=== PATIENT | female | born 1970 ===

== ENCOUNTER 2020-09-11 21:41 | Inpatient (IN) | payer MEDICAID, SELFPAY ==
[2020-09-11] VITALS (22 sets, daily range): BP systolic 162–229; BP diastolic 79–126; PULSE 67–132; RESP 15–33; TEMP 36.5–36.7; O2SAT 95–100
[2020-09-11] MEDS: Ketamine 500 MG/10 ML VIAL 400 MG IM (21:40)
--- NOTE | 2020-09-11 21:45 | DI.CT_ITS ---
EXAM: CT HEAD WO CLINICAL HISTORY: altered. TECHNIQUE: Imaging Protocol: Axial computed tomography images with coronal and sagittal reformatted images were created and reviewed COMPARISON: No exams were available for comparison FINDINGS: The ventricular system is normal in appearance. No evidence of acute intracranial hemorrhage, mass effect, or midline shift. The orbital structures are unremarkable. The temporal bone structures appear intact. Calvarium: Normal. Visualized Paranasal sinuses/Mastoids: There is fluid in ethmoid sinuses, left maxillary sinus, left sphenoid sinus. Findings are consistent with acute and/or chronic sinusitis. IMPRESSION: No evidence of acute intracranial process. Question acute versus chronic sinusitis. RADIATION DOSE DELIVERED: 799.94mGy.cm Total DLP 799.94mGy.cm Total DLP DATA REPOSITORY: All CT scans at this facility are submitted to the National Radiology Data Registry (NRDR) Dose Index Registry (DIR) with the [employer] (ACR). RADIATION OPTIMIZATION: All CT scans at this facility use at least one of these dose optimization te chniques: automated exposure control; mA and/or kV adjustment per patient size (includes targeted exa ms where dose is matched to clinical indication); or iterative reconstruction.
--- NOTE | 2020-09-11 21:57 | ED.GENADUL_ITS ---
Discharge Plan Disposition Patient Disposition: [facility] INPATIENT Condition: Serious Discharge Details Clinical Impression: Intentional drug overdose, Suicide attempt, Altered mental status, Hypoxia Admit Date/Time: 09/12/20 11:12 Admit Provider: Gadiel Knowles Attending Provider: Gadiel Knowles Primary Care Provider: RONALD ROMAN ED Provider: Nicole Martin Discharge Data Discharge Date/Time-TO BE ENTERED AT DEPARTURE: 09/12/20 13:27 Medical Decision Making <James Valladares MD - Last Filed: 09/25/20 21:07> 10:00 PM?- 50-year-old female arrives via EMS with altered mental status. Patient is combative and altered. Unclear etiology although there is suggestion that she ingested unknown substance. Patient was transitioned from law enforcement custody in handcuffs and restrained with four-point and provided ketamine 4 mg/kg estimated body weight. Patient responded well to ketamine and is now sedated under chemical restraint. Consider acute intracranial hemorrhage. Plan to check stat CT of the head. 11:28 PM --patient reassessed and becoming more agitated. I will give Ativan 2 mg IV. 12:00 --patient reassessed and still altered and agitated at risk of harming self. Plan to continue physical restraints. [id number] was performed. Patient was noted to be tolerating restraint without difficulty. I spoke with the patient's daughter Alba White who did note that patient e xpressed today that nobody loves her and that she wanted to . Patient apparently was observed taking a handful of unknown pills that were thought to be BeFlex (phenyltoloxamine/acetaminophen). BOSTON Zamora assisted in care and called Poison Control Center who recommended repeat Tylenol at 1 AM with repeat LFTs as well as q2 salicylates x2. Initial LFTs and acetaminophen negative. UDS is positive for methadone and amphetamines. CT head was interpreted by radiology: There is fluid within the sinuses, consistent with acute sinusitis. No evidence of acute intracranial abnormality. EKG reviewed and interpreted by me: Sinus tachycardia 100 bpm, QTC 492, DE interval 141. Please see report. Lab Data Lab results reviewed: Yes I reviewed the patient's lab results. Labs: Laboratory Tests Range/Units 09/11/20 09/11/20 09/11/20 21:45 21:45 21:45 WBC (4.4-10.8) 10^3/uL 18.47 H RBC (3.93-5.22) 10^6/uL 5.02 Hgb (11.2-15.7) g/dL 14.8 Hct (36.0-46.0) % 45.6 MCV (80-95) fL 90.8 MCH (27.0-33.0) pg 29.5 MCHC (32.0-36.0) % 32.5 RDW (11.7-14.6) % 12.5 Plt Count (130-400) 10^3/uL 335 MPV (8.0-11.0) fL 10.1 Immature Gran % 0.0 Neutrophils % 62.0 Lymphocytes % 30.0 Atypical Lymphs % 1 Monocytes % 5.0 Eosinophils % 2.0 Basophils % 0.0 Nucleated RBC % % 0 Absolute Neutrophils (1.2-6.7) 10^3/uL 11.45 H Absolute Lymphocytes (1.2-3.4) 10^3/uL 5.73 H Absolute Monocytes (0.1-0.8) 10^3/uL 0.92 H Absolute Eosinophils (0.0-0.7) 10^3/uL 0.37 Absolute Basophils (0.0-0.2) 10^3/uL 0.00 Sodium (136-145) mmol/L 143 Potassium (3.5-5.1) mmol/L 3.5 Chloride (98-107) mmol/L 103 Carbon Dioxide (21.0-32.0) mmol/L 20.7 L Anion Gap (3-11) mmol/L 19.3 H BUN (7-18) mg/dL 21 H Creatinine (0.55-1.02) mg/dL 1.0 Estimated GFR/1.73 m2 (mL/min/1.73m2) 58.22 Glucose (74-106) mg/dL 131 H Calcium (8.5-10.1) mg/dL 9.3 Magnesium (1.8-2.4) mg/dL 1.9 Total Bilirubin (0.2-1.0) mg/dL 0.3 AST (15-37) U/L 14 L ALT (14-59) U/L 26 Alkaline Phosphatase (46-116) U/L 98 Creatine Kinase (26-192) U/L Troponin I (<0.06) ng/mL < 0.05 Total Protein (6.4-8.2) g/dL 8.0 Albumin (3.4-5.0) g/dL 4.3 Urine Color (Yellow) Urine Clarity (Clear) Urine pH (5-8) Ur Specific Guthrie (1.005-1.025) Urine Protein (Negative) mg/dL Urine Ketones (Negative) mg/dL Urine Blood (Negative) Urine Nitrite (Negative) Urine Bilirubin (Negative) Urine Urobilinogen (Up TO 0.2) EU/dL Ur Leukocyte Esterase (Negative) Urine RBC (0-2) HPF Urine WBC (0-5) HPF Ur Epithelial Cells (Negative) HPF Urine Crystals (Negative) HPF Urine Bacteria (Negative) HPF Urine Casts (Negative) LPF Urine Mucus (Negative) Ur Culture Indicated? Urine Glucose (Negative) mg/dL Salicylates (<2.8) mg/dL 3.3 Urine Opiates Screen (Negative) Urine Methadone Screen (Negative) Acetaminophen (10-30) ug/mL < 2 Ur Barbiturates Screen (Negative) Ur Tricyclics Screen (Negative) Ur Amphetamines Screen (Negative) U Benzodiazepines Scrn (Negative) Urine Cocaine Screen (Negative) Ur THC Screen (Negative) COVID-19 Source SARS-CoV-2 (PCR) (Negative) Influenza Type A (PCR) (Negative) Influenza Type B (PCR) (Negative) RSV (PCR) (Negative) Range/Units 09/11/20 09/11/20 09/11/20 21:45 21:45 21:50 WBC (4.4-10.8) 10^3/uL RBC (3.93-5.22) 10^6/uL Hgb (11.2-15.7) g/dL Hct (36.0-46.0) % MCV (80-95) fL MCH (27.0-33.0) pg MCHC (32.0-36.0) % RDW (11.7-14.6) % Plt Count (130-400) 10^3/uL MPV (8.0-11.0) fL Immature Gran % Neutrophils % Lymphocytes % Atypical Lymphs % Monocytes % Eosinophils % Basophils % Nucleated RBC % % Absolute Neutrophils (1.2-6.7) 10^3/uL Absolute Lymphocytes (1.2-3.4) 10^3/uL Absolute Monocytes (0.1-0.8) 10^3/uL Absolute Eosinophils (0.0-0.7) 10^3/uL Absolute Basophils (0.0-0.2) 10^3/uL Sodium (136-145) mmol/L Potassium (3.5-5.1) mmol/L Chloride (98-107) mmol/L Carbon Dioxide (21.0-32.0) mmol/L Anion Gap (3-11) mmol/L BUN (7-18) mg/dL Creatinine (0.55-1.02) mg/dL Estimated GFR/1.73 m2 (mL/min/1.73m2) Glucose (74-106) mg/dL Calcium (8.5-10.1) mg/dL Magnesium (1.8-2.4) mg/dL Total Bilirubin (0.2-1.0) mg/dL AST (15-37) U/L ALT (14-59) U/L Alkaline Phosphatase (46-116) U/L Creatine Kinase (26-192) U/L Troponin I (<0.06) ng/mL Total Protein (6.4-8.2) g/dL Albumin (3.4-5.0) g/dL Urine Color (Yellow) Yellow Urine Clarity (Clear) Clear Urine pH (5-8) 5.5 Ur Specific Guthrie (1.005-1.025) >= 1.030 H Urine Protein (Negative) mg/dL 30 H Urine Ketones (Negative) mg/dL Negative Urine Blood (Negative) Small H Urine Nitrite (Negative) Negative Urine Bilirubin (Negative) Negative Urine Urobilinogen (Up TO 0.2) EU/dL 0.2 Ur Leukocyte Esterase (Negative) Negative Urine RBC (0-2) HPF 5-10 H Urine WBC (0-5) HPF Negative Ur Epithelial Cells (Negative) HPF Few Urine Crystals (Negative) HPF Negative Urine Bacteria (Negative) HPF Negative Urine Casts (Negative) LPF Negative Urine Mucus (Negative) Heavy Ur Culture Indicated? No Urine Glucose (Negative) mg/dL Negative Salicylates (<2.8) mg/dL Urine Opiates Screen (Negative) Negative Urine Methadone Screen (Negative) Positive A Acetaminophen (10-30) ug/mL Ur Barbiturates Screen (Negative) Negative Ur Tricyclics Screen (Negative) Negative Ur Amphetamines Screen (Negative) Positive A U Benzodiazepines Scrn (Negative) Negative Urine Cocaine Screen (Negative) Negative Ur THC Screen (Negative) Negative COVID-19 Source Nasopharyx SARS-CoV-2 (PCR) (Negative) Negative Influenza Type A (PCR) (Negative) Negative Influenza Type B (PCR) (Negative) Negative RSV (PCR) (Negative) Negative Range/Units 09/11/20 09/11/20 23:45 23:45 WBC (4.4-10.8) 10^3/uL RBC (3.93-5.22) 10^6/uL Hgb (11.2-15.7) g/dL Hct (36.0-46.0) % MCV (80-95) fL MCH (27.0-33.0) pg MCHC (32.0-36.0) % RDW (11.7-14.6) % Plt Count (130-400) 10^3/uL MPV (8.0-11.0) fL Immature Gran % Neutrophils % Lymphocytes % Atypical Lymphs % Monocytes % Eosinophils % Basophils % Nucleated RBC % % Absolute Neutrophils (1.2-6.7) 10^3/uL Absolute Lymphocytes (1.2-3.4) 10^3/uL Absolute Monocytes (0.1-0.8) 10^3/uL Absolute Eosinophils (0.0-0.7) 10^3/uL Absolute Basophils (0.0-0.2) 10^3/uL Sodium (136-145) mmol/L Potassium (3.5-5.1) mmol/L Chloride (98-107) mmol/L Carbon Dioxide (21.0-32.0) mmol/L Anion Gap (3-11) mmol/L BUN (7-18) mg/dL Creatinine (0.55-1.02) mg/dL Estimated GFR/1.73 m2 (mL/min/1.73m2) Glucose (74-106) mg/dL Calcium (8.5-10.1) mg/dL Magnesium (1.8-2.4) mg/dL Total Bilirubin (0.2-1.0) mg/dL AST (15-37) U/L ALT (14-59) U/L Alkaline Phosphatase (46-116) U/L Creatine Kinase (26-192) U/L 548 H Troponin I (<0.06) ng/mL Total Protein (6.4-8.2) g/dL Albumin (3.4-5.0) g/dL Urine Color (Yellow) Urine Clarity (Clear) Urine pH (5-8) Ur Specific Guthrie (1.005-1.025) Urine Protein (Negative) mg/dL Urine Ketones (Negative) mg/dL Urine Blood (Negative) Urine Nitrite (Negative) Urine Bilirubin (Negative) Urine Urobilinogen (Up TO 0.2) EU/dL Ur Leukocyte Esterase (Negative) Urine RBC (0-2) HPF Urine WBC (0-5) HPF Ur Epithelial Cells (Negative) HPF Urine Crystals (Negative) HPF Urine Bacteria (Negative) HPF Urine Casts (Negative) LPF Urine Mucus (Negative) Ur Culture Indicated? Urine Glucose (Negative) mg/dL Salicylates (<2.8) mg/dL < 2.8 Urine Opiates Screen (Negative) Urine Methadone Screen (Negative) Acetaminophen (10-30) ug/mL Ur Barbiturates Screen (Negative) Ur Tricyclics Screen (Negative) Ur Amphetamines Screen (Negative) U Benzodiazepines Scrn (Negative) Urine Cocaine Screen (Negative) Ur THC Screen (Negative) COVID-19 Source SARS-CoV-2 (PCR) (Negative) Influenza Type A (PCR) (Negative) Influenza Type B (PCR) (Negative) RSV (PCR) (Negative) <Dilshad Joya MD - Last Filed: 09/12/20 06:14> pt remains sleeping but will move to painful stimuli, given how asleep she is feel she currently can be removed from restraints, repeat anion gap improved. Awaiting tylenol and aspirin levels negative aspirin and tylenol levels, ck mildly increased. Pt localizing to painful stimuli and says ouch but doesn't open her eyes. Poison control recommends repeating tylenol level one more time and trending cpk until down trending. Pt still too sleepy to consult with mental health, will be signed out to oncoming provider pending mental health evaluation <Nicole Martin DO - Last Filed: 09/12/20 21:27> 0800 --please see previous providers notes for initial presentation, course and plan. Case endorsed to continue to monitor patient and plan for her to be evaluated by mental health when she is awake and alert. No recommendations for checking additional Tylenol or CK levels. Patient evaluated by me at bedside. She is sonorous with noisy respirations. Her oxygen saturation is 89% on 4 L, increased to 91% on 5 L. She is a smoker without any known history of COPD and is not on home oxygen. Suspect due to her body habitus that she has sleep apnea. Patient noted to have coarse breath sounds bilaterally. Portable chest x-ray noted IMPRESSION: 1. Ill-defined left basilar opacity could represent atelectasis however infection/pneumonia not excluded in the appropriate clinical setting. 2. Mild pulmonary vascular congestion. 3. Ovoid density projecting over the stomach may be superficial to the patient however may also represent ingested content/material. Correlate with clinical history/physical exam. Case discussed with patient's daughter who noted that patient has a history of chronic shortness of breath due to her smoking but has not noted any new cough or fever. We will hold on treatment for pneumonia at this time. Patient referred for CT imaging for further evaluation of the chest in addition to the ovoid density noted projecting over the stomach on the chest x-ray. 1030 --patient still sleeping and suspect it may be several hours til she is fully awake. With her intentional overdose and need for continued monitoring with her hypoxia while asleep, will admit patient for further observation until medically cleared. Case discussed with hospitalist who accepts patient for admission. CT chest noted: IMPRESSION: 1. No evidence of pulmonary embolus or aortic dissection with limitation due to motion. 2. Bilateral pulmonary opacities consistent with atelectasis, edema, or pneumonia. 3. Additional scattered ground-glass opacities which can be seen with viral pneumonia including COVID-[address] abd/pelvis noted: IMPRESSION: 1. No evidence of aortic dissection or aneurysm or other acute findings on study somewhat limited due to motion. 2. No ingested pill identified. 3. Bilateral subcentimeter renal lesions. No further follow-up recommended for these. CT results discussed with hospitalist -rapid Covid was negative. Discussed that her CT findings may be more consistent with CHF rather than pneumonia but he will continue to monitor. Patient's daughter Alba informed results and plan and agreeable. Medical Records Medical records reviewed: Yes I reviewed the patient's medical records. Imaging Data Radiologic Study: Radiologist's impression: XR Chest Exam date and time: 09/12/2020 9:46 AM Age: 50 years old Clinical indication: Other: AMS TECHNIQUE: Imaging protocol: XR of the chest Views: 1 view. COMPARISON: No relevant images were readily available for comparison purposes. FINDINGS: Lungs: Pulmonary vascular prominence. ill-defined opacity left lung base. Pleural spaces: No sizable pleural effusion. no pneumothorax. Heart/Mediastinum: Cardiomediastinal silhouette is within normal limits. Bones/joints: no acute displaced fracture. Other findings: there is a ovoid appearing density projecting over the stomach. IMPRESSION: 1. Ill-defined left basilar opacity could represent atelectasis however infection/pneumonia not excluded in the appropriate clinical setting. 2. Mild pulmonary vascular congestion. 3. Ovoid density projecting over the stomach may be superficial to the patient however may also represent ingested content/material. Correlate with clinical history/physical exam. CT Angiography Chest With Contrast Exam date and time: 09/12/2020 12:25 PM Age: 50 years old Clinical indication: Cough and other: Hypoxia, AMS; Cough with hemorrhage; Other: R/O pe, pneumonia; Patient HX: Possible ingested material in stomach, R/O pill ingestion. TECHNIQUE: Imaging protocol: Computed tomographic angiography of the chest with contrast. 3D rendering (Not supervised by radiologist): MIP and/or 3D reconstructed images were created by the technologist. Radiation optimization: All CT scans at this facility use at least one of these dose optimization techniques: automated exposure control; mA and/or kV adjustment per patient size (includes targeted exams where dose is matched to clinical indication); or iterative reconstruction. Contrast material: OMNIPAQUE 350; Contrast volume: 100 ml; Contrast route: INTRAVENOUS (IV); COMPARISON: CR XR PORTABLE CHEST AP 09/12/2020 9:28 AM FINDINGS: Pulmonary arteries: Contrast opacification of the pulmonary arteries is good with limitation due to respiratory motion especially in the lung bases predominantly at the segmental level and beyond. No evidence of pulmonary embolus. Aorta: Evaluation of the aortic root limited by motion and streak artifact. No convincing evidence of dissection. Lungs: There is dependent consolidation in the medial aspect of each lower lobe which may represent atelectasis, pneumonia, or edema. There is more diffuse patchy opacity in the posterior aspect of the left upper lobe and there also patchy foci of ground-glass opacity in both upper lobes. Pleural spaces: Unremarkable. No pneumothorax. No pleural effusion. Heart: Unremarkable. No cardiomegaly. No pericardial effusion. Lymph nodes: Unremarkable. No enlarged lymph nodes. Bones/joints: Mild diffuse degenerative disc disease of the thoracic spine. Mild kyphoscoliosis. No acute fracture. Soft tissues: Unremarkable. Other findings: No opaque foreign body within the digestive tract to suggest an ingested pill. IMPRESSION: 1. No evidence of pulmonary embolus or aortic dissection with limitation due to motion. 2. Bilateral pulmonary opacities consistent with atelectasis, edema, or pneumonia. 3. Additional scattered ground-glass opacities which can be seen with viral pneumonia including COVID-[address] Angiography Abdomen With Contrast Exam date and time: 09/12/2020 12:25 PM Age: 50 years old Clinical indication: Cough and other: Hypoxia, AMS; Cough with hemorrhage; Other: R/O pe, pneumonia; Patient HX: Possible ingested material in stomach, R/O pill ingestion. TECHNIQUE: Imaging protocol: Computed tomographic angiography images of the abdomen with intravenous contrast material. 3D rendering (Not supervised by radiologist): MIP and/or 3D reconstructed images were created by the technologist. Radiation optimization: All CT scans at this facility use at least one of these dose optimization techniques: automated exposure control; mA and/or kV adjustment per patient size (includes targeted exams where dose is matched to clinical indication); or iterative reconstruction. Contrast material: OMNIPAQUE 350; Contrast volume: 100 ml; Contrast route: INTRAVENOUS (IV); COMPARISON: CR XR PORTABLE CHEST AP 09/12/2020 9:28 AM FINDINGS: Aorta: The aorta and major branches demonstrate mild atherosclerotic calcification. No aortic aneurysm. Celiac trunk and mesenteric arteries: No occlusion or significant stenosis. Renal arteries: No occlusion or significant stenosis. Liver: The liver is grossly unremarkable although poorly evaluated due to respiratory motion. Gallbladder and bile ducts: No mineralized gallstones. Evaluation of liver somewhat limited due to respiratory motion. Pancreas: The pancreas is normal. Spleen: The spleen is normal. 15 mm splenule along the dorsal aspect of the spleen. Adrenals: The adrenal glands are normal. Kidneys and ureters: There are few tiny subcentimeter bilateral renal lesions which are too small to characterize. The largest is in the right interpolar region and measures 8 mm in diameter. Stomach and bowel: There are few scattered small colonic diverticula. No evidence of diverticulitis. Appendix: A normal appendix is identified. Lymph nodes: Unremarkable. No enlarged lymph nodes. Intraperitoneal space: Unremarkable. No free air. No significant fluid collection. Reproductive: There has been a hysterectomy. Bladder: Urinary bladder nondistended but grossly unremarkable for the level of decompression. Bones/joints: No acute fracture. Soft tissues: Small fat containing right inguinal hernia. Other findings: No foreign body within the digestive tract to suggest an ingested pill. IMPRESSION: 1. No evidence of aortic dissection or aneurysm or other acute findings on study somewhat limited due to motion. 2. No ingested pill identified. 3. Bilateral subcentimeter renal lesions. No further follow-up recommended for these. HPI <James Valladares MD - Last Filed: 09/25/20 21:07> General Mode of arrival: EMS . Date/Time Provider Initiated Documentation: 09/11/20 21:51 . Limitations to Documentation: altered mental status . Information obtained by: EMS . HPI Narrative: 50-year-old female arrives with EMS with altered mental status. History review of systems is limited secondary to altered mental status. EMS note that patient apparently ingested family member medication. Medication is unknown at this time. Patient was initially somnolent with decreased respirations and received naloxone intranasally by fast squad. Patient then became violent, confused and combative. She has remained combative and altered in route to [facility] despite EMS providing Ativan 2 mg IM. Rel ated Data Home Medications Medication Instructions Recorded Confirmed ibuprofen 600 mg PO Q6H PRN #20 tablet 10/07/16 lisinopril 40 mg PO DAILY 10/07/16 10/07/16 chlorhexidine gluconate 09/11/20 09/11/20 chlorthalidone 09/11/20 09/11/20 clonidine HCl 09/11/20 09/11/20 diclofenac sodium TOPICAL 09/11/20 09/11/20 methadone 15 mg PO HS 09/11/20 09/12/20 nicotine (polacrilex) mg 09/11/20 09/11/20 amoxicillin-pot clavulanate 1 tab PO BID #10 tab 09/14/20 Previous Rx's Medication Instructions Recorded ibuprofen 600 mg PO Q6H PRN #20 tablet 10/07/16 amoxicillin-pot clavulanate 1 tab PO BID #10 tab 09/14/20 Allergies Allergy/AdvReac Type Severity Reaction Status Date / Time No Known Allergies Allergy Unverified 10/07/16 18:32 Review of Systems <James Valladares MD - Last Filed: 09/25/20 21:07> Unobtainable due to mental status PFSH <James Valladares MD - Last Filed: 09/25/20 21:07> Medical History (Updated 09/13/20 @ 13:14 by Gadiel Knowles MD) Chronic back pain Depression Hypertension Social History Smoking risk assessment performed?: No Details: unable to answer/obtain Do you feel safe in your relationship?: No Additional Social history: unable to answer/obtain Exam <James Valladares MD - Last Filed: 09/25/20 21:07> Const General: uncooperative, acute distress severe and combative Orientation: confused Limitations: altered mental status and behavioral limitations HENMT Head: normocephalic and atraumatic Mouth: moist mucous membranes Eyes Conjunctivae: normal conjunctivae Sclera: normal sclerae Neck Neck: trachea midline and supple Resp Auscultation: clear to auscultation bilaterally, no rales, no rhonchi and no wheezes Cardio Rate: tachycardic Rhythm: regular rhythm Pulses: radial pulses present bilaterally and dorsalis pedis present bilaterally GI Palpation: soft, not firm, no guarding, no masses, not rigid and nontender Skin Rashes: rashes noted (Some mild erythema right thigh) Neuro General: patient awake and patient confused Extrem General: no edema Psych Appearance: disheveled Mental Status: mental status grossly abnormal Speech and Movement: agitated Affect: anxious affect Other: Patient altered and combative screaming Restraint Face to Face <James Valladares MD - Last Filed: 09/25/20 21:07> Time of Face to Face Face to Face: Time of Face to Face: 23:00 Patient's Immediate Situation Requiring Restraints/Seclusion: Harm to Patient Patient Response to Restraints: Tolerating without Problems Patient's Medical & Behavioral Condition: Altered mental status, presumed substance abuse, acute psychosis. Restraints initiated <Dilshad Joya MD - Last Filed: 09/12/20 06:14> Time of Face to Face 2nd Face to Face: Time of Face to Face: 01:30 Need for Continuation of Restraints Has Been Assessed: Restraints Terminated Sign Out <James Valladares MD - Last Filed: 09/25/20 21:07> Sign Out Data: Sign Out Comment: Please see documentation regarding initial ED presentation course. Plan to reassess patient for disposition. Patient will need mental health evaluation when medically clear. Last updated by James Valladares MD at 09/12/20 00:14 Sign Out Comment: Patient took meds in attempt to self harm yesterday and was agitated when he arrived so was given IM ketamine and ativan. Pending reevaluation when more awake.. Last updated by Dilshad Joya MD at 09/12/20 06:16
[2020-09-11 22:11] LABS: Abs Immature Grans 0.05 10^3/uL (0.0-0.06); HCT 45.6 % (36.0-46.0); HGB 14.8 g/dL (11.2-15.7); MCH 29.5 pg (27.0-33.0); MCHC 32.5 % (32.0-36.0); MCV 90.8 fL (80-95); MPV 10.1 fL (8.0-11.0); Nucleated RBC 0 %; Platelet Count 335 10^3/uL (130-400); RBC 5.02 10^6/uL (3.93-5.22); RDW 12.5 % (11.7-14.6); RDW-SD 41.4 fL; WBC 18.47 10^3/uL (4.4-10.8)
[2020-09-11 22:14] LABS: Bilirubin Negative (Negative); Blood Small (Negative); Clarity Clear (Clear); Glucose Negative (Negative); Ketones Negative (Negative); Leukocyte Esterase Negative (Negative); Nitrite Negative (Negative); Specific Gravity >= 1.030 (1.005-1.025); Urobilinogen 0.2 EU/dL (Up TO 0.2); pH 5.5 (5-8)
--- NOTE | 2020-09-11 22:15 | RT.EKG_ITS ---
APPROVED REPORT Exam: Resting ECG Patient Location: E HR:100 bpm ECG Measurements Heart Rate 100 AXIS TX 141 P 66 QRSd 97 QRS 74 QT 380 T 48 QTc 492 Conclusion Sinus tachycardia...rate> 99
[2020-09-11 22:21] LABS: Bacteria Negative HPF (Negative); Casts Negative LPF (Negative); Crystals Negative HPF (Negative); Epithelial Cells Few HPF (Negative); Mucus Heavy (Negative); WBC Negative HPF (0-5)
[2020-09-11 22:22] LABS: C & S Indicated? No
--- NOTE | 2020-09-11 22:24 | DI.VRAD_ITS ---
PROCEDURE INFORMATION: Exam: CT Head Without Contrast Exam date and time: 09/11/2020 9:55 PM Age: 50 years old Clinical indication: Alteration of consciousness; Patient HX: PT found unresponsive in home TECHNIQUE: Imaging protocol: Computed tomography of the head without contrast. Radiation optimization: All CT scans at this facility use at least one of these dose optimization techniques: automated exposure control; mA and/or kV adjustment per patient size (includes targeted exams where dose is matched to clinical indication); or iterative reconstruction. Other technique: STROKE PROTOCOL was implemented. COMPARISON: No relevant prior studies available. FINDINGS: Brain: There is no significant cerebral atrophy present. There is no significant white matter disease present. There is no evidence of intracranial hemorrhage. There is no evidence of acute intracranial injury or other pathologic process. There is no evidence of an acute ischemic event. No evidence of an acute intracranial abnormality. Cerebral ventricles: The ventricular system is normal in caliber and are seen in the midline. Bones/joints: There is an old fracture of the nasal bones. The orbits are normal without evidence of fracture. The bony cranium shows no evidence of acute injury or other acute pathologic processes. Paranasal sinuses: There is fluid within the sinuses, consistent with acute sinusitis. Mastoid air cells: The mastoid aircells are normal. Orbital cavity: There is no evidence of retro-bulbar hemorrhage. There is no evidence of globe or lens injury. Soft tissues: The extracranial soft tissues are normal. IMPRESSION: 1. There is fluid within the sinuses, consistent with acute sinusitis. 2. No evidence of an acute intracranial abnormality. ASSESSMENT: ASPECTS (Lian Stroke Program Early CT Score) is 10. Dictated and Authenticated by: Chance Moya MD. Ordering:CEM Ramirez MD
[2020-09-11 22:28] LABS: Absolute Eosinophil Count 0.37 10^3/uL (0.0-0.7); Absolute Lymphocyte Count 5.73 10^3/uL (1.2-3.4); Absolute Monocyte Count 0.92 10^3/uL (0.1-0.8); Absolute Neutrophil Count 11.45 10^3/uL (1.2-6.7); Atypical Lymphocytes % 1
[2020-09-11 22:29] LABS: Diff Comment Diff Reviewed
[2020-09-11 22:32] LABS: ALT 26 U/L (14-59); AST 14 U/L (15-37); Albumin 4.3 g/dL (3.4-5.0); Alkaline Phosphatase 98 U/L (46-116); Anion Gap 19.3 mmol/L (3-11); BUN 21 mg/dL (7-18); Bilirubin, Total 0.3 mg/dL (0.2-1.0); CO2 20.7 mmol/L (21.0-32.0); Calcium 9.3 mg/dL (8.5-10.1); Chloride 103 mmol/L (98-107); Estimated GFR 58.22 (mL/min/1.73m2); Glucose 131 mg/dL (74-106); Magnesium 1.9 mg/dL (1.8-2.4); Potassium 3.5 mmol/L (3.5-5.1); Sodium 143 mmol/L (136-145)
[2020-09-11 22:33] LABS: Troponin I < 0.05 ng/mL (<0.06)
[2020-09-11 22:40] LABS: *AMPHETAMINES SCREEN URINE POSITIVE (Negative); *BARBITURATES SCREEN URINE Negative (Negative); *BENZODIAZEPINES SCREEN URINE Negative (Negative); Cannabinoids THC Negative (Negative); Cocaine Screen,Urine Negative (Negative); METHADONE URINE SCREEN POSITIVE (Negative); OPIATES URINE SCREEN Negative (Negative); Salicylate 3.3 mg/dL (<2.8)
[2020-09-11 22:42] LABS: Tricyclic Antidepressants Negative (Negative)
[2020-09-11 22:43] LABS: Acetaminophen < 2 ug/mL (10-30)
[2020-09-11 22:48] LABS: COVID-19 PCR Negative (Negative); Influenza A PCR Negative (Negative); Influenza B PCR Negative (Negative); RSV PCR Negative (Negative)
[2020-09-11] MEDS: LORazepam 2 MG/ML VIAL IVP (23:14)
[2020-09-11 23:58] LABS: Salicylate < 2.8 mg/dL (<2.8)
[2020-09-12] VITALS (131 sets, daily range): BP systolic 127–187; BP diastolic 59–98; PULSE 42–113; RESP 16–33; TEMP 36–38.8; O2SAT 90–99
[2020-09-12] MEDS: Normal Saline 250 ML IV (00:01)
[2020-09-12 00:03] LABS: Creatine Kinase 548 U/L (26-192)
--- NOTE | 2020-09-12 00:13 | NUR.NOTE ---
Nursing Note: Patient's daughter Alba called to check on patient. States patient does have a remote history of depression and had been on celexa. Prescribing doctor retired and new physician had tried generic which did not work the same. New physician would not continue the med. Alba states that today patient had a really bad day. Pt loves animals. One chicken 3 days ago, another today (due to old age). Pt also has a dog who is 13 years old and insulin dependent. Daughter made remark to her that the dog was on its way out. Daughter then states that Vilma took granddaughter aMkayla heller and Makayla started crying at one point as she was tired. Pt then made remarks that no one loves her and she would be better off . Pt was seen shoving a big handful of unknown pills in her mouth around 2100. After daughter searched through meds & packaging, it is most likely meds were B-flexin. Poison Control notified and cared adjusted based on recommendations.
--- NOTE | 2020-09-12 00:46 | PDOC.CMSAFED ---
- If Service Date Differs Date of service: 09/12/20 Time of Service: 00:47 Care Management Safety Plan Status: Voluntary (Interim-awaiting medical clearance and crisis screening.) CM will respond to ED to assess patient after patient has been medically cleared and assessed by MH screener. If screener deems patient meets criteria for psychiatric stabilization CM will facilitate interdepartmental huddle with [facility] screener for safety planning considerations and meet with patient to review [facility] policy and safety plan, establish individual wishes for treatment and maintain patient rights. In the interim; please note safety plan below to guide patient care while awaiting further assessment in the ED. SAFETY PLAN: 1. Will remain on suicide precautions and in paper clothes. 2. Will remain in room under direct supervision of one-on-one staff at all times provided by PETERSON, SALES ENABLEMENT SPECIALIST professor of biochemistry. 3. May have paper cups, plates, finger foods as well as a cardboard spoon with which to eat meals. 4. Follow [facility] Management of the Admitted Behavioral Health Patient policy. 5. Personal care: Comfort bath system only at this time. 6. Bathroom privileges: with escort in ED. Available in room without limitation on Med/Surg. 6. No personal belongings at this time; per RN discretion. 7. No visitors at this time. 8. Phone contact limited to legal contact at this time. 9. Activities: Music tablet per RN discretion. Med/Surg: Television and remote available at RN discretion. 10. Due to VOLUNTARY status, if patient wishes to leave [facility], staff will contact [facility] Crisis Screener ([phone]) and On-Call Writing Manager ([phone]) as soon as possible. In the event of elopement, notify [facility] ([phone]). If deemed appropriate for inpatient psychiatric care, safety plan will be established with patient, and care team, to adhere to patient goals, identify restrictions based on behavioral status, address nutrition, and determine allowed personal belongings, tools for hygiene and personal care. As well plan will determine level of activity including ambulation, level of supervision, visitors, and determine privileges based on level of acuity, behaviors and level of engagement by patient.
[2020-09-12 01:20] LABS: Anion Gap 9.6 mmol/L (3-11); BUN 19 mg/dL (7-18); CO2 26.4 mmol/L (21.0-32.0); CREATININE 0.7 mg/dL (0.55-1.02); Calcium 8.8 mg/dL (8.5-10.1); Chloride 106 mmol/L (98-107); Creatine Kinase 582 U/L (26-192); Glucose 153 mg/dL (74-106); Potassium 3.9 mmol/L (3.5-5.1); Sodium 142 mmol/L (136-145)
[2020-09-12 02:48] LABS: Salicylate < 2.8 mg/dL (<2.8)
[2020-09-12 02:49] LABS: Acetaminophen < 2 ug/mL (10-30)
[2020-09-12 03:27] LABS: ALT 25 U/L (14-59); AST 20 U/L (15-37); Albumin 3.9 g/dL (3.4-5.0); Alkaline Phosphatase 83 U/L (46-116); Bilirubin, Direct 0.1 mg/dL (0.0-0.2); Bilirubin, Total 0.4 mg/dL (0.2-1.0); Total Protein 6.8 g/dL (6.4-8.2)
[2020-09-12 06:37] LABS: Acetaminophen < 2 ug/mL (10-30); Creatine Kinase 557 U/L (26-192)
[2020-09-12] MEDS: Normal Saline 1,000 ML 1000 ML IV (08:29)
--- NOTE | 2020-09-12 09:00 | DI.RAD_ITS ---
EXAM: XR PORTABLE CHEST AP CLINICAL HISTORY: wet breath sounds, altered, r/o pna, chf TECHNIQUE: COMPARISON: CT CT CHEST PE ABD PELVIS W from 09/12/2020 FINDINGS: Portable AP chest at 0945 hours. Heart is enlarged. There are mild bilateral patchy and diffuse pul monary infiltrates. No recent prior films available for comparison. IMPRESSION: Cardiomegaly and question of mild pulmonary interstitial edema and/or patchy infiltrates. Appropriat e follow-up studies requested. RADIATION DOSE DELIVERED: Total DLP
--- NOTE | 2020-09-12 10:02 | DI.VRAD_ITS ---
PROCEDURE INFORMATION: Exam: XR Chest Exam date and time: 09/12/2020 9:46 AM Age: 50 years old Clinical indication: Other: AMS TECHNIQUE: Imaging protocol: XR of the chest Views: 1 view. COMPARISON: No relevant images were readily available for comparison purposes. FINDINGS: Lungs: Pulmonary vascular prominence. ill-defined opacity left lung base. Pleural spaces: No sizable pleural effusion. no pneumothorax. Heart/Mediastinum: Cardiomediastinal silhouette is within normal limits. Bones/joints: no acute displaced fracture. Other findings: there is a ovoid appearing density projecting over the stomach. IMPRESSION: 1. Ill-defined left basilar opacity could represent atelectasis however infection/pneumonia not excluded in the appropriate clinical setting. 2. Mild pulmonary vascular congestion. 3. Ovoid density projecting over the stomach may be superficial to the patient however may also represent ingested content/material. Correlate with clinical history/physical exam. Dictated and Authenticated by: Omi Jarrell MD. Ordering:APOLONIA Rivera MD
--- NOTE | 2020-09-12 11:02 | DI.CT_ITS ---
EXAM: CT CHEST PE ABD PELVIS W TECHNIQUE: CT angiography of the chest, abdomen and pelvis was performed with bolus infusion of 100 cc of Omnipaque 350. Axial CT angiography was performed with multi-slice acquisition and multi-planar and/or 3D reconstruc tions. COMPARISON: No exams were available for comparison FINDINGS: There are large areas of patchy pulmonary consolidation bilaterally in the medial lower pulmonary lob es. No gross diffuse interstitial process seen as suspected on today's radiographs. No pulmonary em bolic disease as visualized although there is limited visualization of peripheral vessels due to lloyd on artifact.. No pleural effusion. No thoracic aortic dissection or aneurysm. Major branches of the thoracic aorta appear normal. No mediastinal or hilar adenopathy. Tracheobronchial tree appears in tact. Examination of the abdomen is limited by motion artifact. No focal hepatic or renal abnormality seen . Gallbladder and bile ducts are CT normal. Pancreas is unremarkable. Spleen shows unremarkable early arterial phase pattern of enhancement. No abdominal aortic aneurysm or dissection. Major branches of the abdominal aorta appear normal. No a bdominal or pelvic adenopathy. Normal appendix. No significant abdominal wall hernia. No focal bowel pathology. IMPRESSION: No evidence of acute vascular abnormality of the chest, abdomen or pelvis. There are areas of dense pulmonary consolidation involving both lower lobes medially, highly suspicio us for pneumonitis. RADIATION DOSE DELIVERED: 1,633.91mGy.cm Total DLP 1,633.91mGy.cm Total DLP DATA REPOSITORY: All CT scans at this facility are submitted to the National Radiology Data Registry (NRDR) Dose Index Registry (DIR) with the [employer] (A[employer]). RADIATION OPTIMIZATION: All CT scans at this facility use at least one of these dose optimization te chniques: automated exposure control; mA and/or kV adjustment per patient size (includes targeted exa ms where dose is matched to clinical indication); or iterative reconstruction.
[2020-09-12] MEDS: Normal Saline - Diluent 50 ML VIAL IV (11:31)
[2020-09-12] MEDS: Omnipaque 350 MG/ML 100 ML BTL IJ (11:31)
[2020-09-12] MEDS: Normal Saline Flush 10 ML SYR IVP ×2 (11:32→16:41)
[2020-09-12 12:07] LABS: Procalcitonin < 0.1 ng/mL
--- NOTE | 2020-09-12 14:23 | DI.VRAD_ITS ---
PROCEDURE INFORMATION: Exam: CT Angiography Chest With Contrast Exam date and time: 09/12/2020 12:25 PM Age: 50 years old Clinical indication: Cough and other: Hypoxia, AMS; Cough with hemorrhage; Other: R/O pe, pneumonia; Patient HX: Possible ingested material in stomach, R/O pill ingestion. TECHNIQUE: Imaging protocol: Computed tomographic angiography of the chest with contrast. 3D rendering (Not supervised by radiologist): MIP and/or 3D reconstructed images were created by the technologist. Radiation optimization: All CT scans at this facility use at least one of these dose optimization techniques: automated exposure control; mA and/or kV adjustment per patient size (includes targeted exams where dose is matched to clinical indication); or iterative reconstruction. Contrast material: OMNIPAQUE 350; Contrast volume: 100 ml; Contrast route: INTRAVENOUS (IV); COMPARISON: CR XR PORTABLE CHEST AP 09/12/2020 9:28 AM FINDINGS: Pulmonary arteries: Contrast opacification of the pulmonary arteries is good with limitation due to respiratory motion especially in the lung bases predominantly at the segmental level and beyond. No evidence of pulmonary embolus. Aorta: Evaluation of the aortic root limited by motion and streak artifact. No convincing evidence of dissection. Lungs: There is dependent consolidation in the medial aspect of each lower lobe which may represent atelectasis, pneumonia, or edema. There is more diffuse patchy opacity in the posterior aspect of the left upper lobe and there also patchy foci of ground-glass opacity in both upper lobes. Pleural spaces: Unremarkable. No pneumothorax. No pleural effusion. Heart: Unremarkable. No cardiomegaly. No pericardial effusion. Lymph nodes: Unremarkable. No enlarged lymph nodes. Bones/joints: Mild diffuse degenerative disc disease of the thoracic spine. Mild kyphoscoliosis. No acute fracture. Soft tissues: Unremarkable. Other findings: No opaque foreign body within the digestive tract to suggest an ingested pill. IMPRESSION: 1. No evidence of pulmonary embolus or aortic dissection with limitation due to motion. 2. Bilateral pulmonary opacities consistent with atelectasis, edema, or pneumonia. 3. Additional scattered ground-glass opacities which can be seen with viral pneumonia including COVID-19 19. PROCEDURE INFORMATION: Exam: CT Angiography Abdomen With Contrast Exam date and time: 09/12/2020 12:25 PM Age: 50 years old Clinical indication: Cough and other: Hypoxia, AMS; Cough with hemorrhage; Other: R/O pe, pneumonia; Patient HX: Possible ingested material in stomach, R/O pill ingestion. TECHNIQUE: Imaging protocol: Computed tomographic angiography images of the abdomen with intravenous contrast material. 3D rendering (Not supervised by radiologist): MIP and/or 3D reconstructed images were created by the technologist. Radiation optimization: All CT scans at this facility use at least one of these dose optimization techniques: automated exposure control; mA and/or kV adjustment per patient size (includes targeted exams where dose is matched to clinical indication); or iterative reconstruction. Contrast material: OMNIPAQUE 350; Contrast volume: 100 ml; Contrast route: INTRAVENOUS (IV); COMPARISON: CR XR PORTABLE CHEST AP 09/12/2020 9:28 AM FINDINGS: Aorta: The aorta and major branches demonstrate mild atherosclerotic calcification. No aortic aneurysm. Celiac trunk and mesenteric arteries: No occlusion or significant stenosis. Renal arteries: No occlusion or significant stenosis. Liver: The liver is grossly unremarkable although poorly evaluated due to respiratory motion. Gallbladder and bile ducts: No mineralized gallstones. Evaluation of liver somewhat limited due to respiratory motion. Pancreas: The pancreas is normal. Spleen: The spleen is normal. 15 mm splenule along the dorsal aspect of the spleen. Adrenals: The adrenal glands are normal. Kidneys and ureters: There are few tiny subcentimeter bilateral renal lesions which are too small to characterize. The largest is in the right interpolar region and measures 8 mm in diameter. Stomach and bowel: There are few scattered small colonic diverticula. No evidence of diverticulitis. Appendix: A normal appendix is identified. Lymph nodes: Unremarkable. No enlarged lymph nodes. Intraperitoneal space: Unremarkable. No free air. No significant fluid collection. Reproductive: There has been a hysterectomy. Bladder: Urinary bladder nondistended but grossly unremarkable for the level of decompression. Bones/joints: No acute fracture. Soft tissues: Small fat containing right inguinal hernia. Other findings: No foreign body within the digestive tract to suggest an ingested pill. IMPRESSION: 1. No evidence of aortic dissection or aneurysm or other acute findings on study somewhat limited due to motion. 2. No ingested pill identified. 3. Bilateral subcentimeter renal lesions. No further follow-up recommended for these. Dictated and Authenticated by: Dario Hidalgo MD. Ordering:APOLONIA Rivera MD
--- NOTE | 2020-09-12 15:23 | HPE_ITS ---
Date of service: 09/12/20 Time of Service: 15:25 Assessment and Plan Assessment and plan (1) Intentional self-harm: Status: Acute Assessment and plan: Pt has a h/o depression. Expressed to family member(s) that she felt no one loves me. Not currently on an antidepressant. When awake and able to interact, will obtain mental health evaluation. (2) Acute alteration in mental status: Status: Acute Assessment and plan: Secondary to O.D. on uncertain medications, but thought to be BioFlex. UDS also positive for methadone and amphetamines. Remains somnolent; has gag reflex. Holding methadone and any sedating meds. (3) Sinusitis: Status: Acute Assessment and plan: There is fluid in ethmoid sinuses, left maxillary sinus, left sphenoid sinus. Findings are consistent with acute and/or chronic sinusitis. Also evidence of PNA Zosyn initiated. Likely change to Augmentin to continue as outpt. (4) Essential hypertension: Status: Acute Assessment and plan: On chlorthalidone, lisinopril and clonidine at home. No oral meds at this time d/t obtunded state; risk of aspiration. PRN hydralazine for SBP > 180. (5) Chronic back pain: Status: Acute Assessment and plan: On methadone and Ibuprofen at home. Holding. (6) Depression: Status: Chronic Assessment and plan: No current antidepressants. Will have mental health evaluate when she is awake and able to participate. (7) Pneumonitis: Status: Acute Assessment and plan: Procalcitonin is <0.1 Pulmonary edema likely; given dose of IV lasix. WBC count is elevated and is receiving Zosyn for sinusitis. Monitor WBC. History of Present Illness History of Present Illness Chief Complaint: Intentional drug overdose Narrative: This is a 50 yo female with a PMH of chronic pain syndrome on methadone, HTN. She presented to the ED via EMS after she was observed to ingest a handful of pills thought to be BioFlex (phenyltoloxamine/acetaminophen). She was combative, altered and with law enforcement in handcuffs initially. She was transitioned to 4-point restraints. IM ketamine given and she became sedated. She became agitated once again and was given Ativan 2mg IV and remained somnolent afterward. Poison Control Center recommended repeat Tylenol, LFT's Q2H and salicylates x1. UDS was positive for methadone and amphetamines. CT head was negative other than fluid within the sinuses. WBC count elevated at 18.47. CXR showed mild pulmonary edema and/or patchy infiltrates. CT chest/abd showed dense pulmonary consolidation involving both lower lobes medially, susp icious for pneumonitis. Review of Systems All systems reviewed & are unremarkable except as noted in HPI and below PFSH Medical History Chronic back pain Depression Hypertension Social History Smoking risk assessment performed?: No Details: unable to answer/obtain Do you feel safe in your relationship?: No Additional Social history: unable to answer/obtain Meds Home Medications and Allergies Allergies Allergy/AdvReac Type Severity Reaction Status Date / Time No Known Allergies Allergy Unverified 10/07/16 18:32 Home Medications Medication Instructions Recorded Confirmed Type ibuprofen 600 mg PO Q6H PRN #20 tablet 10/07/16 Rx lisinopril 40 mg PO DAILY 10/07/16 10/07/16 History chlorhexidine gluconate 09/11/20 09/11/20 History chlorthalidone 09/11/20 09/11/20 History clonidine HCl 09/11/20 09/11/20 History diclofenac sodium TOPICAL 09/11/20 09/11/20 History methadone 15 mg PO HS 09/11/20 09/12/20 History nicotine (polacrilex) mg 09/11/20 09/11/20 History Exam Const General: no acute distress Orientation: not awake and obtunded [facility] Head: normocephalic and atraumatic Eyes Sclera: sclerae normal Pupils: pupil size bilaterally (pupil size is small / equal and reactive to light.) Neck Neck: no JVD Thyroid: no masses Resp Effort & Inspection: tachypneic and other (sonorous ) Auscultation: clear to auscultation bilaterally Cardio Rate: regular rate Rhythm: regular rhythm Heart Sounds: S1 normal and S2 normal GI Inspection: obesity Palpation: soft and nontender Skin General skin exam: no rashes or lesions noted Neuro General: not awake and moves all extremities Cranial Nerves: gag reflex normal Extrem General: no pedal edema and no calf tenderness (reliability of exam limited d/t obtunded state) Results Labs Result diagrams: 09/11/20 21:45 09/12/20 01:02 Labs: Laboratory Results - last 24 hr 09/11/20 09/11/20 09/11/20 21:45 21:45 21:45 WBC 18.47 H RBC 5.02 Hgb 14.8 Hct 45.6 MCV 90.8 MCH 29.5 MCHC 32.5 RDW 12.5 Plt Count 335 MPV 10.1 Immature Gran % 0.0 Neutrophils % 62.0 Lymphocytes % 30.0 Atypical Lymphs % 1 Monocytes % 5.0 Eosinophils % 2.0 Basophils % 0.0 Nucleated RBC % 0 Absolute Neutrophils 11.45 H Absolute Lymphocytes 5.73 H Absolute Monocytes 0.92 H Absolute Eosinophils 0.37 Absolute Basophils 0.00 Sodium 143 Potassium 3.5 Chloride 103 Carbon Dioxide 20.7 L Anion Gap 19.3 H BUN 21 H Creatinine 1.0 Estimated GFR/1.73 m2 58.22 Glucose 131 H Calcium 9.3 Magnesium 1.9 Total Bilirubin 0.3 Conjugated Bilirubin AST 14 L ALT 26 Alkaline Phosphatase 98 Creatine Kinase Troponin I < 0.05 Total Protein 8.0 Albumin 4.3 Procalcitonin Urine Color Urine Clarity Urine pH Ur Specific [place] Urine Protein Urine Ketones Urine Blood Urine Nitrite Urine Bilirubin Urine Urobilinogen Ur Leukocyte Esterase Urine RBC Urine WBC Ur Epithelial Cells Urine Crystals Urine Bacteria Urine Casts Urine Mucus Ur Culture Indicated? Urine Glucose Salicylates 3.3 Urine Opiates Screen Urine Methadone Screen Acetaminophen < 2 Ur Barbiturates Screen Ur Tricyclics Screen Ur Amphetamines Screen U Benzodiazepines Scrn Urine Cocaine Screen Ur THC Screen COVID-19 Source SARS-CoV-2 (PCR) Influenza Type A (PCR) Influenza Type B (PCR) RSV (PCR) 09/11/20 09/11/20 09/11/20 21:45 21:45 21:50 WBC RBC Hgb Hct MCV MCH MCHC RDW Plt Count MPV Immature Gran % Neutrophils % Lymphocytes % Atypical Lymphs % Monocytes % Eosinophils % Basophils % Nucleated RBC % Absolute Neutrophils Absolute Lymphocytes Absolute Monocytes Absolute Eosinophils Absolute Basophils Sodium Potassium Chloride Carbon Dioxide Anion Gap BUN Creatinine Estimated GFR/1.73 m2 Glucose Calcium Magnesium Total Bilirubin Conjugated Bilirubin AST ALT Alkaline Phosphatase Creatine Kinase Troponin I Total Protein Albumin Procalcitonin Urine Color Yellow Urine Clarity Clear Urine pH 5.5 Ur Specific [place] >= 1.030 H Urine Protein 30 H Urine Ketones Negative Urine Blood Small H Urine Nitrite Negative Urine Bilirubin Negative Urine Urobilinogen 0.2 Ur Leukocyte Esterase Negative Urine RBC 5-10 H Urine WBC Negative Ur Epithelial Cells Few Urine Crystals Negative Urine Bacteria Negative Urine Casts Negative Urine Mucus Heavy Ur Culture Indicated? No Urine Glucose Negative Salicylates Urine Opiates Screen Negative Urine Methadone Screen Positive A Acetaminophen Ur Barbiturates Screen Negative Ur Tricyclics Screen Negative Ur Amphetamines Screen Positive A U Benzodiazepines Scrn Negative Urine Cocaine Screen Negative Ur THC Screen Negative COVID-19 Source Nasopharyx SARS-CoV-2 (PCR) Negative Influenza Type A (PCR) Negative Influenza Type B (PCR) Negative RSV (PCR) Negative 09/11/20 09/11/20 09/12/20 23:45 23:45 01:02 WBC RBC Hgb Hct MCV MCH MCHC RDW Plt Count MPV Immature Gran % Neutrophils % Lymphocytes % Atypical Lymphs % Monocytes % Eosinophils % Basophils % Nucleated RBC % Absolute Neutrophils Absolute Lymphocytes Absolute Monocytes Absolute Eosinophils Absolute Basophils Sodium 142 Potassium 3.9 Chloride 106 Carbon Dioxide 26.4 Anion Gap 9.6 BUN 19 H Creatinine 0.7 Estimated GFR/1.73 m2 >= 60.00 Glucose 153 H Calcium 8.8 Magnesium Total Bilirubin Conjugated Bilirubin AST ALT Alkaline Phosphatase Creatine Kinase 548 H 582 H Troponin I Total Protein Albumin Procalcitonin Urine Color Urine Clarity Urine pH Ur Specific [place] Urine Protein Urine Ketones Urine Blood Urine Nitrite Urine Bilirubin Urine Urobilinogen Ur Leukocyte Esterase Urine RBC Urine WBC Ur Epithelial Cells Urine Crystals Urine Bacteria Urine Casts Urine Mucus Ur Culture Indicated? Urine Glucose Salicylates < 2.8 Urine Opiates Screen Urine Methadone Screen Acetaminophen Ur Barbiturates Screen Ur Tricyclics Screen Ur Amphetamines Screen U Benzodiazepines Scrn Urine Cocaine Screen Ur THC Screen COVID-19 Source SARS-CoV-2 (PCR) Influenza Type A (PCR) Influenza Type B (PCR) RSV (PCR) 09/12/20 09/12/20 09/12/20 01:02 01:02 01:02 WBC RBC Hgb Hct MCV MCH MCHC RDW Plt Count MPV Immature Gran % Neutrophils % Lymphocytes % Atypical Lymphs % Monocytes % Eosinophils % Basophils % Nucleated RBC % Absolute Neutrophils Absolute Lymphocytes Absolute Monocytes Absolute Eosinophils Absolute Basophils Sodium Potassium Chloride Carbon Dioxide Anion Gap BUN Creatinine Estimated GFR/1.73 m2 Glucose Calcium Magnesium Total Bilirubin 0.4 Conjugated Bilirubin 0.1 AST 20 ALT 25 Alkaline Phosphatase 83 Creatine Kinase Troponin I Total Protein 6.8 Albumin 3.9 Procalcitonin < 0.1 Urine Color Urine Clarity Urine pH Ur Specific [place] Urine Protein Urine Ketones Urine Blood Urine Nitrite Urine Bilirubin Urine Urobilinogen Ur Leukocyte Esterase Urine RBC Urine WBC Ur Epithelial Cells Urine Crystals Urine Bacteria Urine Casts Urine Mucus Ur Culture Indicated? Urine Glucose Salicylates < 2.8 Urine Opiates Screen Urine Methadone Screen Acetaminophen < 2 Ur Barbiturates Screen Ur Tricyclics Screen Ur Amphetamines Screen U Benzodiazepines Scrn Urine Cocaine Screen Ur THC Screen COVID-19 Source SARS-CoV-2 (PCR) Influenza Type A (PCR) Influenza Type B (PCR) RSV (PCR) 09/12/20 06:00 WBC RBC Hgb Hct MCV MCH MCHC RDW Plt Count MPV Immature Gran % Neutrophils % Lymphocytes % Atypical Lymphs % Monocytes % Eosinophils % Basophils % Nucleated RBC % Absolute Neutrophils Absolute Lymphocytes Absolute Monocytes Absolute Eosinophils Absolute Basophils Sodium Potassium Chloride Carbon Dioxide Anion Gap BUN Creatinine Estimated GFR/1.73 m2 Glucose Calcium Magnesium Total Bilirubin Conjugated Bilirubin AST ALT Alkaline Phosphatase Creatine Kinase 557 H Troponin I Total Protein Albumin Procalcitonin Urine Color Urine Clarity Urine pH Ur Specific [place] Urine Protein Urine Ketones Urine Blood Urine Nitrite Urine Bilirubin Urine Urobilinogen Ur Leukocyte Esterase Urine RBC Urine WBC Ur Epithelial Cells Urine Crystals Urine Bacteria Urine Casts Urine Mucus Ur Culture Indicated? Urine Glucose Salicylates Urine Opiates Screen Urine Methadone Screen Acetaminophen < 2 Ur Barbiturates Screen Ur Tricyclics Screen Ur Amphetamines Screen U Benzodiazepines Scrn Urine Cocaine Screen Ur THC Screen COVID-19 Source SARS-CoV-2 (PCR) Influenza Type A (PCR) Influenza Type B (PCR) RSV (PCR) Last Vital Signs Temp 36 C L 09/12/20 13:10 Pulse 63 09/12/20 13:10 Resp 26 H 09/12/20 13:10 BP 152/70 H 09/12/20 13:10 Pulse Ox 99 09/12/20 13:10
[2020-09-12] MEDS: Enoxaparin 40 MG/0.4 ML SYR SC (16:40)
[2020-09-12] MEDS: Furosemide 40 MG/4 ML VIAL IVP (16:40)
[2020-09-12 16:59] LABS: ALT 23 U/L (14-59); AST 20 U/L (15-37); Albumin 3.8 g/dL (3.4-5.0); Alkaline Phosphatase 77 U/L (46-116); Bilirubin, Direct 0.2 mg/dL (0.0-0.2); Bilirubin, Total 0.8 mg/dL (0.2-1.0); Total Protein 7.3 g/dL (6.4-8.2)
[2020-09-12 17:06] LABS: Acetaminophen < 2 ug/mL (10-30)
[2020-09-12 17:31] LABS: BE (Venous) 5 mmol/L (-2-3); HCO3 (Venous) 29 mmol/L (23-28); O2 Sat (Venous) 85 %; TCO2 (Venous) 25 mmol/L (24-29); pCO2 (Venous) 41 mmHg (41-51); pH (Venous) 7.45 (7.31-7.41); pO2 (Venous) 45 mmHg
[2020-09-12] MEDS: PIPERACILLIN/TAZO 3.375 GM in Normal Saline 50 ML IVPB ×2 (17:48→23:36)
[2020-09-12 18:11] LABS: Salicylate < 2.8 mg/dL (<2.8)
--- NOTE | 2020-09-12 20:52 | NUR.NOTE ---
1530Alba calls wants update on pt. Explained that there is no HIPAA so little info to be given but that there is not change from since arrival in ICU this afternoon. pt lethargic and not responding to voice/ect. Daughter Alba (daughter) and father ask to have be able to say something to herAsked for them to call back at 1600 for speaker phone to be set up in room for them to speak to pt per their request. 1600 Phone set up in room and placed on speaker. (male voice crying and yelling just wake the hell up, just do it, I love you so much you don't even know! both he and Joanne asking questions about pt's health will she wake up? Is she in a coma? assured that she was not in a coma but explained that the drug ingestion type and amount is best guess and not witnessed so there no known answers for outcome. Alba and both attempt to explain that I told her she had to tell EMT's the truth and she did- I gave them all the pill bottle names-Alba Rn explains again that unwitnessed overdoses often have meds that we don't expect and we are watching for everything and will respond to any change in her condition Reassured both that she is being monitored but is not responding to voice or moving at this time. Daughter concerned but she was moving last night! explained that the pills ingested may be absorbed overtime and her condition may change in response to those chemicals as they are absorbed into her bloodstream that is why we are monitoring her closely Family spoke to pt and rn at the bedside for >5mins. RN surface supervisor comes to ICU and states that Alba has called her and the BE flex bflex reported by her to [facility] is actually Baclofen. This RN called poison control and reported this update. They feel it better explains her symptoms an state that it is sedating and will make pt flaccid. IF pt took this med normally (scheduled) for a period before this OD then we should be concerned for the potential of withdrawal later (tense muscles).
[2020-09-12] MEDS: Lactated Ringers 1,000 ML 80 ML IV (22:52)
[2020-09-13] VITALS (26 sets, daily range): BP systolic 114–157; BP diastolic 54–91; PULSE 63–99; RESP 16–27; TEMP 36.2–36.5; O2SAT 92–98
--- NOTE | 2020-09-13 | DI.RAD_ITS ---
EXAM: XR ANKLE RT 2V CLINICAL HISTORY: pain. TECHNIQUE: 2D digital imaging was performed. COMPARISON: CR LEFT FOOT COMPLETE from 10/07/2016 FINDINGS: There is no evidence of obvious fracture nor widening of the mortise on this limited two view study. However, on the lateral view there is a subtle 2 millimeter calcific density seen posteriorly in th e ankle joint subjacent to the posterior malleolus, possibly significant. An inferior calcaneal spur is noted In addition, there is some indistinctness streaking in the soft tissues anterior to the ankle as well as posteriorly in the anterior aspect of the pre Achilles fat pad. IMPRESSION: Subtle abnormal findings as described above. Correlation with clinical findings is recommended. DATA REPOSITORY: RADIATION DOSE DELIVERED:
[2020-09-13] MEDS: PIPERACILLIN/TAZO 3.375 GM in Normal Saline 50 ML IVPB ×4 (05:55→23:57)
[2020-09-13 06:09] LABS: BE (Venous) 7 mmol/L (-2-3); HCO3 (Venous) 31 mmol/L (23-28); O2 Sat (Venous) 99 %; TCO2 (Venous) 27 mmol/L (24-29); pCO2 (Venous) 44 mmHg (41-51); pH (Venous) 7.46 (7.31-7.41); pO2 (Venous) 112 mmHg
[2020-09-13 06:14] LABS: Abs Immature Grans 0.04 10^3/uL (0.0-0.06); Absolute Eosinophil Count 0.03 10^3/uL (0.0-0.7); Absolute Monocyte Count 0.76 10^3/uL (0.1-0.8); Basophils % 0.3; Eosinophils % 0.2; HCT 41.7 % (36.0-46.0); HGB 13.8 g/dL (11.2-15.7); Immature Grans % 0.3; Lymphocytes % 15.5; MCH 29.7 pg (27.0-33.0); MCHC 33.1 % (32.0-36.0); MCV 89.7 fL (80-95); MPV 10.2 fL (8.0-11.0); Monocytes % 5.1; Neutrophils % 78.6; Nucleated RBC 0 %; RBC 4.65 10^6/uL (3.93-5.22); RDW 12.6 % (11.7-14.6); RDW-SD 41.7 fL; WBC 14.82 10^3/uL (4.4-10.8)
[2020-09-13 06:21] LABS: Anion Gap 7.5 mmol/L (3-11); BUN 15 mg/dL (7-18); CO2 30.5 mmol/L (21.0-32.0); CREATININE 0.8 mg/dL (0.55-1.02); Calcium 8.8 mg/dL (8.5-10.1); Chloride 105 mmol/L (98-107); Glucose 130 mg/dL (74-106); Potassium 3.3 mmol/L (3.5-5.1); Sodium 143 mmol/L (136-145)
[2020-09-13 06:39] LABS: Absolute Basophil Count 0.04 10^3/uL (0.0-0.2); Absolute Neutrophil Count 11.65 10^3/uL (1.2-6.7); Platelet Count 186 10^3/uL (130-400)
--- NOTE | 2020-09-13 08:42 | INITIAL_ITS ---
- If Service Date Differs Date of service: 09/13/20 Time of Service: 16:06 Care Management Initial Assess REASON FOR HOSPITALIZATION:: Intentional med overdose, depression, altered mental status PAST MEDICAL HISTORY/PAST SURGICAL HISTORY:: Chronic back pain. Depression. Hypertension PREVIOUS FUNCTIONAL STATUS/SOCIAL/FAMILY SUPPORTS:: Resides in [place], [place]. DaughterAlba main contact. CURRENT FUNCTIONAL STATUS:: Vilma sleeps throughout the day. Per RN, she has had more moments of engagement, noted by saying a few words, moaning, and responding with yes and thank you no matter the stimulus. ADVANCE DIRECTIVES:: None on file. Has patient been provided with info about the portal/API?: No Did the patient sign up for the portal?: No CODE STATUS:: Full Code INSURANCE COVERAGE / FINANCIAL ISSUES:: Medicaid. State [place] Disability CURRENT HOME/COMMUNITY SERVICES/EQUIPMENT:: None known, currently. PRIMARY CARE PHYSICIAN:: Mike Garza POTENTIAL DISCHARGE NEEDS:: MH evaluation when able to engage; per discussion with MD and RN, Vilma is not yet alert enough for screening. PATIENT/FAMILY EDUCATION NEEDS:: Review discharge instructions, discuss Ask Me Three. ANTICIPATED BARRIERS TO DISCHARGE:: Altered mental status; awaiting MH screening. TRANSPORTATION:: TBD by disposition. PLAN:: Vilma continues to be closely monitored and treated in the ICU. Interim safety plan entered until Vilma is able to fully engage. ICU staff are unable to update family at this time; has agreed to support family until Vilma is able to engage with them directly. Vilma's , daughter and son are struggling, they discuss emotional stress central to her actions prior to presenting to the hospital and her prolonged status in the ICU; being unable to fully engage. SINGH reviews current visitation policy and option for tele-visit when patients are agreeable. CM will continue to support Vilma and her family at this time.
--- NOTE | 2020-09-13 08:45 | PDOC.CMSAFE ---
- If Service Date Differs Date of service: 09/13/20 Time of Service: 08:45 Care Management Safety Plan Status: Voluntary CM will assess patient after patient has been medically cleared and assessed by screener. If screener deems patient meets criteria for psychiatric stabilization CM will facilitate interdepartmental huddle with [facility] screener for safety planning considerations and meet with patient to review [facility] policy and safety plan, establish individual wishes for treatment and maintain patient rights. In the interim; please note safety plan below to guide patient care while awaiting further assessment in the ED. SAFETY PLAN: 1. Will remain on suicide precautions and in paper clothes. 2. Will remain in room under direct supervision of one-on-one staff at all times provided by [employer], METAL CUT OFF SAW OPERATOR shotblast equipment operator. 3. May have paper cups, plates, finger foods as well as a cardboard spoon with which to eat meals. 4. Follow [facility] Management of the Admitted Behavioral Health Patient policy. 5. Personal care: Comfort bath system only at this time. 6. Bathroom privileges: with escort in ED. Available in room without limitation on Med/Surg. 6. No personal belongings at this time; per RN discretion. 7. No visitors at this time. 8. Phone contact limited to legal contact at this time. 9. Activities: Music tablet per RN discretion. Med/Surg: Television and remote available at RN discretion. 10. Due to VOLUNTARY status, if patient wishes to leave [facility], staff will contact [facility] Crisis Screener ([phone]) and On-Call Wharf Operator ([phone]) as soon as possible. In the event of elopement, notify [facility] Police ([phone]). If deemed appropriate for inpatient psychiatric care, safety plan will be established with patient, and care team, to adhere to patient goals, identify restrictions based on behavioral status, address nutrition, and determine allowed personal belongings, tools for hygiene and personal care. As well plan will determine level of activity including ambulation, level of supervision, visitors, and determine privileges based on level of acuity, behaviors and level of engagement by patient.
[2020-09-13] MEDS: Ketorolac 30 MG/ML VIAL IVP (10:34)
[2020-09-13] MEDS: Methadone 10 MG TAB PO (10:56)
--- NOTE | 2020-09-13 13:06 | W.PM.PROGNOT ---
Date of Service Date of service: 09/13/20 Time of Service: 09:30 Assessment and Plan Assessment and plan (1) Intentional drug overdose: Status: Acute Assessment and plan: Family was able to inform us that she had taken an overdose of Baclofen. Poison control contacted. Risk of hypertension, coma, seizures; none of which have been observed. (2) Altered mental status: Status: Acute Assessment and plan: d/t overdose of baclofen. No longer obtunded, but somnolent with intermittent arousal. (3) Chronic back pain: Status: Acute Assessment and plan: Restarted her methadone. Toradol IV x 1. (4) Essential hypertension: Status: Acute Assessment and plan: Normotensive currently. Holding chlorthalidone, lisinopril and clonidine. Reinitiate as needed. (5) Sinusitis: Status: Acute Assessment and plan: Cont Zosyn. Also had concerns for possible pneumonitits; Zosyn selected for coverage. (6) Pneumonitis: Status: Acute Assessment and plan: WBC count has decreased. Her procal was normal on admission. Cont Zosyn. (7) Depression: Status: Chronic Assessment and plan: Mental health evaluation when more alert and able to participate in an evaluation. Not on an antidepressant at time of admission. Subjective Subjective Patient reports: afebrile; denies shortness of breath Interval history since last seen: Ms Shi has become less somnolent; wakens for short periods of time and verbalizes. She is confused but not agitated or combative. She stated her back ached. She was able to swallow pills this AM Exam Const General: no acute distress Orientation: not awake (alseep. Arouses briefly to physical stimuli) and confused Resp Effort & Inspection: normal respiratory effort and other (Breathing is no longer sonorous) Auscultation: clear to auscultation bilaterally Cardio Rate: regular rate Rhythm: regular rhythm Heart Sounds: S1 normal and S2 normal GI Palpation: soft and nontender Auscultation: hypoactive bowel sounds Neuro General: not awake (somnolent), moves all extremities and patient confused Extrem General: no pedal edema and no calf tenderness Objective Last Vital Signs Temp 36.4 C L 09/13/20 08:54 Pulse 96 H 09/13/20 11:00 Resp 22 09/13/20 11:00 BP 121/73 09/13/20 11:00 Pulse Ox 96 09/13/20 11:00 Laboratory Results - last 24 hr 09/12/20 09/12/20 09/12/20 01:02 06:00 16:15 WBC RBC Hgb Hct MCV MCH MCHC RDW Plt Count MPV Immature Gran % Neutrophils % Lymphocytes % Monocytes % Eosinophils % Basophils % Nucleated RBC % Absolute Neutrophils Absolute Lymphocytes Absolute Monocytes Absolute Eosinophils Absolute Basophils VBG pH VBG pCO2 VBG pO2 VBG HCO3 VBG Total CO2 VBG O2 Saturation VBG Base Excess Sodium Potassium Chloride Carbon Dioxide Anion Gap BUN Creatinine Estimated GFR/1.73 m2 Glucose Calcium Total Bilirubin 0.8 Conjugated Bilirubin 0.2 AST 20 ALT 23 Alkaline Phosphatase 77 Total Protein 7.3 Albumin 3.8 Procalcitonin < 0.1 Salicylates Acetaminophen < 2 09/12/20 09/12/20 09/13/20 17:25 17:25 05:43 WBC RBC Hgb Hct MCV MCH MCHC RDW Plt Count MPV Immature Gran % Neutrophils % Lymphocytes % Monocytes % Eosinophils % Basophils % Nucleated RBC % Absolute Neutrophils Absolute Lymphocytes Absolute Monocytes Absolute Eosinophils Absolute Basophils VBG pH 7.45 H VBG pCO2 41 VBG pO2 45 VBG HCO3 29 H VBG Total CO2 25 VBG O2 Saturation 85 VBG Base Excess 5 H Sodium 143 Potassium 3.3 L Chloride 105 Carbon Dioxide 30.5 Anion Gap 7.5 BUN 15 Creatinine 0.8 Estimated GFR/1.73 m2 >= 60.00 Glucose 130 H Calcium 8.8 Total Bilirubin Conjugated Bilirubin AST ALT Alkaline Phosphatase Total Protein Albumin Procalcitonin Salicylates < 2.8 Acetaminophen 09/13/20 09/13/20 05:43 05:43 WBC 14.82 H RBC 4.65 Hgb 13.8 Hct 41.7 MCV 89.7 MCH 29.7 MCHC 33.1 RDW 12.6 Plt Count 186 D MPV 10.2 Immature Gran % 0.3 Neutrophils % 78.6 Lymphocytes % 15.5 Monocytes % 5.1 Eosinophils % 0.2 Basophils % 0.3 Nucleated RBC % 0 Absolute Neutrophils 11.65 H Absolute Lymphocytes 2.30 Absolute Monocytes 0.76 Absolute Eosinophils 0.03 Absolute Basophils 0.04 VBG pH 7.46 H VBG pCO2 44 VBG pO2 112 VBG HCO3 31 H VBG Total CO2 27 VBG O2 Saturation 99 VBG Base Excess 7 H Sodium Potassium Chloride Carbon Dioxide Anion Gap BUN Creatinine Estimated GFR/1.73 m2 Glucose Calcium Total Bilirubin Conjugated Bilirubin AST ALT Alkaline Phosphatase Total Protein Albumin Procalcitonin Salicylates Acetaminophen
[2020-09-13] MEDS: Lactated Ringers 1,000 ML 80 ML IV (15:40)
[2020-09-13] MEDS: Ketorolac 30 MG/ML VIAL (16:58)
[2020-09-13] MEDS: Enoxaparin 40 MG/0.4 ML SYR SC (16:59)
--- NOTE | 2020-09-13 17:06 | DI.VRAD_ITS ---
PROCEDURE INFORMATION: Exam: XR Right Ankle Exam date and time: 09/13/2020 4:42 PM Age: 50 years old Clinical indication: Pain; Ankle; Right TECHNIQUE: Imaging protocol: XR Right ankle. Views: 1 or 2 views. COMPARISON: No relevant prior studies available. FINDINGS: Bones/joints: Normal. Soft tissues: Normal. IMPRESSION: No acute findings. Dictated and Authenticated by: Valentin Montaño MD. Ordering:ANGELO Ramesh MD
[2020-09-13] MEDS: Normal Saline 500 ML 30 ML IV (19:12)
[2020-09-13] MEDS: Methadone 5 MG TAB PO (20:34)
[2020-09-13] MEDS: Ibuprofen 600 MG TAB PO (22:43)
[2020-09-14] VITALS (11 sets, daily range): BP systolic 120–151; BP diastolic 61–85; PULSE 57–108; RESP 18–28; TEMP 36.2–36.8; O2SAT 91–97
[2020-09-14] MEDS: PIPERACILLIN/TAZO 3.375 GM in Normal Saline 50 ML IVPB (05:27)
[2020-09-14 06:41] LABS: BE (Venous) 6 mmol/L (-2-3); HCO3 (Venous) 30 mmol/L (23-28); O2 Sat (Venous) 88 %; TCO2 (Venous) 27 mmol/L (24-29); pCO2 (Venous) 44 mmHg (41-51); pH (Venous) 7.44 (7.31-7.41); pO2 (Venous) 50 mmHg
[2020-09-14 06:55] LABS: Abs Immature Grans 0.03 10^3/uL (0.0-0.06); Absolute Basophil Count 0.05 10^3/uL (0.0-0.2); Absolute Eosinophil Count 0.33 10^3/uL (0.0-0.7); Absolute Lymphocyte Count 2.21 10^3/uL (1.2-3.4); Absolute Monocyte Count 0.63 10^3/uL (0.1-0.8); Basophils % 0.5; Eosinophils % 3.4; HCT 37.9 % (36.0-46.0); HGB 12.2 g/dL (11.2-15.7); Immature Grans % 0.3; Lymphocytes % 22.8; MCH 29.1 pg (27.0-33.0); MCHC 32.2 % (32.0-36.0); MCV 90.5 fL (80-95); MPV 10.1 fL (8.0-11.0); Monocytes % 6.5; Neutrophils % 66.5; Nucleated RBC 0 %; Platelet Count 181 10^3/uL (130-400); RBC 4.19 10^6/uL (3.93-5.22); RDW 12.3 % (11.7-14.6); RDW-SD 40.9 fL; WBC 9.68 10^3/uL (4.4-10.8)
[2020-09-14 06:57] LABS: Absolute Neutrophil Count 6.44 10^3/uL (1.2-6.7)
[2020-09-14 06:58] LABS: ALT 20 U/L (14-59); AST 17 U/L (15-37); Albumin 2.8 g/dL (3.4-5.0); Alkaline Phosphatase 52 U/L (46-116); Anion Gap 8.3 mmol/L (3-11); BUN 19 mg/dL (7-18); Bilirubin, Total 0.7 mg/dL (0.2-1.0); CO2 29.7 mmol/L (21.0-32.0); CREATININE 0.8 mg/dL (0.55-1.02); Calcium 8.7 mg/dL (8.5-10.1); Chloride 106 mmol/L (98-107); Creatine Kinase 352 U/L (26-192); Glucose 102 mg/dL (74-106); Potassium 3.6 mmol/L (3.5-5.1); Sodium 144 mmol/L (136-145); Total Protein 6.1 g/dL (6.4-8.2)
[2020-09-14] MEDS: Lisinopril 20 MG TAB 40 MG PO (08:18)
[2020-09-14] MEDS: Methadone 10 MG TAB PO (08:18)
--- NOTE | 2020-09-14 10:42 | W.NUTRFU ---
Date of service: 09/14/20 Time of Service: 10:42 Nutritional Follow up NOTE: 50 year old female admitted to ICU after intentional drug overdose. PMH: chronic pain, HTN. BMI indicates class 1 obesity. Diet advanced and well tolerated. Not at nutritional risk at this time. Time Spent in Nutritional Counseling and Treatment: 0
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
--- NOTE | 2020-09-14 11:50 | PT.INIE ---
Date of service: 09/14/20 Time of Service: 11:50 PT Notes Visit Reasons: INTENTIONAL MED OVERDOSE, DEPRESSION, ALTERED MENT Physical Therapy Inpatient Initial Evaluation Date: 09/14/2020 Referring Doctor: Gadiel Knowles MD PT Orders: PT CONSULT: Left ankle sprain. Brace requested. Precautions: Fall. Standard. Weight-bearing as tolerated on R LE with R ankle brace/ASO. Patient Profile/Admitting Diagnosis: Vilma is a 50-year-old female with chronic back pain who presented to the ED on 09/11/2020 with chief presentation of altered mental status and combativeness. Patient is diagnosed with intentional self-harm, altered mental status, sinusitis, essential hypertension, and pneumonitis. PMHX: Medical History Chronic back pain Depression Hypertension Social History/Home Situation: Lives with in a private home with three steps to enter with a rail on one side. Works at a local [employer]. Independent with all aspects of ADLs prior to admission. Equipment Owned/DME: None Subjective: States that she feels better this morning. Happy to know going home this afternoon. Indicates of pain in her right foot at 5/10 without the brace and 2-3/10 with the ankle stabilizing orthosis. Denies headache, chest pain, back pain, and lightheadedness. Objective: General Observation: Telemetry monitoring monitoring in place. Appears calm and collected. No signs of agitation. Very pleasant and cooperative for this consult. SWelling noted on dorsum of R foot and mallelolar areas with the lateral side more swollen than the medial area Mental Status: Alert and oriented x4 Pain: None reported Vital Signs: WNL ROM: Right Upper Extremity: Shoulder Flexion WFL. Shoulder abduction WFL. Elbow flexion WFL. Wrist flexion WFL. Opening and closing of hand WFL. Left Upper Extremity: Shoulder Flexion WFL. Shoulder abduction WFL. Elbow flexion WFL. Wrist flexion WFL. Opening and closing of hand WFL. Right Lower Extremity: Hip flexion WFL. Hip abduction WFL. Knee flexion WFL. Ankle dorsiflexion lacks the last 10 degrees. Ankle inversion lacks the last 5 degrees. Ankle eversion lacks the last 5 degrees. Ankle plantarflexion WFL. Left Lower Extremity: Hip flexion WFL. Hip abduction WFL. Knee flexion WFL. Ankle dorsiflexion WFL. Ankle plantarflexion WFL. Strength: Right Upper Extremity: Shoulder flexors 5/5. Shoulder abductors 5/5. Elbow flexors 5/5. Elbow extensors 5/5. Printing Shop Supervisor strong. Left Upper Extremity: Shoulder flexors 5/5. Shoulder abductors 5/5. Elbow flexors 5/5. Elbow extensors 5/5. Printing Shop Supervisor strong. Right Lower Extremity: Hip flexors 5/5. Hip abductors 5/5. Knee flexors 5/5. Knee extensors 5/5. Ankle dorsiflexors 5/5. Ankle plantarflexors 5/5. Left Lower Extremity:Hip flexors 5/5. Hip abductors 5/5. Knee flexors 5/5. Knee extensors 5/5. Ankle dorsiflexors 3-/5. Ankle plantarflexors 3-/5. Ankle evertors 3-/5. Ankle invertors 3-/5. Sensation: Intact as to pain and pressure on bilateral lower extremities. Bed Mobility/Transfers: Rolling independent Supine to sit independent Sit to supine independent Sit to stand independent Stand to sit independent Bed to chair independent Chair to bed independent Gait: Vilma is able to ambulate short distance of up to 30 feet without an assistive device requiring only supervision assist from PT with a right ankle stabilizing orthosis on. Step to gait pattern. Gait antalgic. Balance: Static Sitting: Normal Dynamic Sitting: Normal Static Standing: Good Dynamic Standing: Good Special Tests: Mobility Limitations Standardized Measure [facility] AM-PAC 6 clicks Basic Mobility Inpatient Short Form: Raw Score: 24 CMS Score: 0% deficit Informed Consent/Education: Patient instructed in purpose of PT consult and plan of care. Assessment: R ankle inversion sprain. Vilma will require the use of an ankle stabilizing orthosis in order to facilitate stability of R ankle during short distance ambulation. Dr. Knowles ordered the use of said brace and coordination with supply chain logistics manager was made in order to assess for orthosis fit and function. Patient presents with clinical signs and symptoms consistent with current/admitting diagnoses that have resulted to mobility limitations, gait instability, generalized weakness, and impairment of motor control as demonstrated by the following impairment level findings: 1. Decreased strength to R ankle joint muscle groups 2. Impaired sitting/standing balance 3. Impaired activity tolerance 4. Limitation of joint range of motion in right ankle Impairments are contributing to the following functional limitations: 1. Inability to safely ambulate without orthosis 2. Increase completion time for mobility ADL performance 3. Increased fall risk Patient is assessed as a [id number] moderate complexity based on the following: History: 50-year-old female with impairment level findings, functional limitations, and past medical history as indicated above Examination: Demonstrable impairment in strength, balance, and mobility level with underlying impairments and functional limitations as documented above Presentation:Evolving Decision Makin moderate complexity Goals: N/A. PT initial evaluation and 1 treatment session for functional mobility training using a right ankle stabilizing orthosis. Plan of Care/Treatment Plan: N/A. PT initial evaluation and 1 treatment session for functional mobility training using a right ankle stabilizing orthosis. PT INTERVENTION RECEIVED TODAY: Assessment for and fitting of appropriate ankle orthosis. Guided patient through bed mobility, transfers, and mobility ADL performance on level surfaces and stairs using no AD. Educated and trained patient on HEP performance to maximize post-surgical functional outcomes. Education on the use of cold pack to minimize pain and swelling.. DISCHARGE RECOMMENDATIONS: Home when cleared by hospitalist. No skilled PT services at this time. No equipment needs. TREATMENT CODE/TIME: 9716 2 x 25 minutes beginning at 11:50 AM. Thank you for the opportunity to participate in the care of this patient. Thu Mehta PT, DPT, [facility] [place], [place]
--- NOTE | 2020-09-14 11:52 | W.PM.DS.N ---
Date of service: 09/14/20 Time of Service: 11:52 DS: Diagnosis Discharge Diagnosis (1) Intentional drug overdose: Status: Acute (2) Altered mental status: Status: Acute (3) Chronic back pain: Status: Acute (4) Essential hypertension: Status: Acute (5) Sinusitis: Status: Acute (6) Pneumonitis: Status: Acute (7) Depression: Status: Chronic Discharge Plan Disposition Patient Disposition: HOME Condition: Serious Discharge Details Reason For Visit: INTENTIONAL MED OVERDOSE, DEPRESSION, ALTERED MENT Admit Date/Time: 09/12/20 11:12 Admit Provider: Gadiel Knowles Attending Provider: Gadiel Knowles Primary Care Provider: RONALD ROMAN Hospital Course Hospital Course: This is a 50 yo female with a PMH of chronic pain syndrome on methadone, HTN. She presented to the ED via EMS after she was observed to ingest a handful of pills thought to be BioFlex (phenyltoloxamine/acetaminophen). She was combative, altered and with law enforcement in handcuffs initially. She was transitioned to 4-point restraints. IM ketamine given and she became sedated. She became agitated once again and was given Ativan 2mg IV and remained somnolent afterward. Poison Control Center recommended repeat Tylenol, LFT's Q2H and salicylates x1. UDS was positive for methadone and amphetamines. CT head was negative other than fluid within the sinuses. WBC count elevated at 18.47. CXR showed mild pulmonary edema and/or patchy infiltrates. CT chest/abd showed dense pulmonary consolidation involving both lower lobes medially, suspicious for pneumonitis. She remained obtunded for the first 24 hours then became intermittently more arousable until on the day of discharge she was alert, oriented x 3 and was able to be interviewed by mental health; cleared for discharge to home. Her family did come to the conclusion that she had actually taken a handful of baclofen tablets; this would better explain her prolonged level of somnolence. She will continue to be engaged with mental health and her PCP for ongoing care and evaluation for her psychiatric concerns. She will complete a course of antibiotics for her sinusitis with Augmentin 875mg for 10 doses. Follow up with PCP in 1 week Home Meds and New Rx's Prescriptions: New amoxicillin-pot clavulanate 875-125 mg Tablet 1 tab PO BID Qty: 10 RF: 0 Continued methadone 5 mg tablet 15 mg PO HS RF: 0 clonidine HCl 0.1 mg tablet RF: 0 chlorthalidone 25 mg tablet RF: 0 nicotine (polacrilex) 2 mg lozenge RF: 0 chlorhexidine gluconate 0.12 % mouthwash RF: 0 diclofenac sodium 1 % gel TOPICAL RF: 0 lisinopril 20 MG tablet 40 mg PO DAILY RF: 0 ibuprofen 600 MG tablet 600 mg PO Q6H PRN (Reason: Pain) Qty: 20 RF: 0 Discharge Instructions Instructions: Depression (GEN) Activity:: Activity as Tolerated Equipment/Supplies:: No Equipment Needed Diet:: Heart Healthy Discharge Orders Discharge Orders: Discharge Order (Routine); Ordered 09/14/20 Ordered By: Gadiel Knowles DS: Summary Time Spent with Patient providing and/or coordinating discharge services: Greater than 30 minutes Status at Discharge Functional status at discharge: independent ambulation Overall status at discharge: patient is progressing back to baseline Mental Status: mental status grossly normal Speech and Movement: speech and movement normal Mood: congruent mood Affect: normal affect Exam Const General: cooperative and no acute distress Nutritional Appearance: overweight Orientation: alert and oriented x3 HENMT Head: normocephalic and atraumatic Neck Neck: full ROM and no JVD Resp Effort & Inspection: normal respiratory effort Auscultation: clear to auscultation bilaterally Cardio Rate: regular rate Rhythm: regular rhythm Heart Sounds: S1 normal and S2 normal GI Palpation: soft and nontender Neuro General: patient alert, patient oriented x3 and no focal motor deficits Speech: speech normal Extrem General: no pedal edema and no calf tenderness Left lower extremity: ankle (tender with wt bearing and ROM) Psych Mental Status: mental status grossly normal Speech and Movement: speech and movement normal Mood: congruent mood Affect: normal affect DS: Data Vitals/I&O Vitals and I&O: Vital Signs Temperature 36.7 C 09/14/20 09:15 Temperature Source Temporal Artery Scan 09/14/20 09:15 Pulse 75 09/14/20 07:50 Pulse 79 09/14/20 07:50 Respiratory Rate 18 09/14/20 07:50 Respiratory Effort Non-Labored 09/14/20 04:20 Respiratory Depth Normal 09/14/20 04:20 Respiratory Pattern Normal 09/14/20 04:20 Blood Pressure 139/82 09/14/20 07:50 Blood Pressure Mean 97 09/14/20 07:50 Blood Pressure Position Supine 09/14/20 04:20 Pulse Oximetry 94 09/14/20 11:00 Oxygen Delivery Method Room Air 09/14/20 11:00 Oxygen Flow Rate 0 09/14/20 11:00 Pain Level 5 09/14/20 08:18 Comment 09/12/20 00:17 Intake & Output 09/13/20 09/13/20 09/14/20 11:59 23:59 11:59 Intake Total 1740 / 1840 340 / 340 Output Total 300 / 700 950 / 950 Balance 1440 / 1140 -610 / -610 Weight 83 kg Intake: IV 1120 / 1220 100 / 100 Oral 620 / 620 240 / 240 Output: Urine 300 / 700 950 / 950 Other: Urine Color Light Sophie Yellow Urine Appearance Clear Clear Comment Gtz insitu Gtz insitu Stool Occult Blood Negative Stool Size Smear Small Stool Characteristics Soft Data Completed and Pending Labs on day of discharge: Labs from last 24 hours 09/14/20 09/14/20 09/14/20 06:35 06:35 06:30 WBC 9.68 D RBC 4.19 Hgb 12.2 Hct 37.9 MCV 90.5 MCH 29.1 MCHC 32.2 RDW 12.3 Plt Count 181 MPV 10.1 Immature Gran % 0.3 Neutrophils % 66.5 Lymphocytes % 22.8 Monocytes % 6.5 Eosinophils % 3.4 Basophils % 0.5 Nucleated RBC % 0 Absolute Neutrophils 6.44 Absolute Lymphocytes 2.21 Absolute Monocytes 0.63 Absolute Eosinophils 0.33 Absolute Basophils 0.05 VBG pH 7.44 H VBG pCO2 44 VBG pO2 50 VBG HCO3 30 H VBG Total CO2 27 VBG O2 Saturation 88 VBG Base Excess 6 H Sodium 144 Potassium 3.6 Chloride 106 Carbon Dioxide 29.7 Anion Gap 8.3 BUN 19 H Creatinine 0.8 Estimated GFR/1.73 m2 >= 60.00 Glucose 102 Calcium 8.7 Total Bilirubin 0.7 AST 17 ALT 20 Alkaline Phosphatase 52 Creatine Kinase 352 H Total Protein 6.1 L Albumin 2.8 L PFSH Medical History (Updated 09/13/20 @ 13:14 by Gadiel Knowles MD) Chronic back pain Depression Hypertension Social History Smoking risk assessment performed?: No Details: unable to answer/obtain Do you feel safe in your relationship?: No Additional Social history: unable to answer/obtain
[2020-09-14] MEDS: Amoxicillin 875/Clav. 125 TAB PO (12:18)
--- NOTE | 2020-09-14 15:07 | PDOC.CMDIS ---
LACE Index Scoring Tool - Questions: Length of Stay (in days): 2 Acuity (Admit via E.D.?): Yes E.D. Visits: 1 - Answers: Total Score: 6 Risk of Readmission: Low Risk Care Management Discharge Reason for Hospitalization: Intentional med overdose, depression, altered mental status Discharge Plan: Vilma will return home when ready per MD. She was cleared by Manda: [facility] with a safety plan to return home. She will transport via private vehicle with her . Patient/Family Education Needs: Review discharge instructions, discuss Ask Me Three. - MH Services (Omit if N/A) Current MH Services: Internal NK (Intake completed.)
--- NOTE | 2020-09-14 15:32 | PDOC.MHCN_ITS ---
Date of service: 09/14/20 Time of Service: 15:32 Mental Health Crisis Note Presenting Issue How did you arrive at the ED and why did you come: Pt arrived on 09.12.2020 after an intentional overdose of Baclofen (500mg). Precipitating Factors Pt denied SI and HI today. There are no signs of delusions. Disposition BEHAVIOR: Pt is cooperative and tearful as she shared what had taken place that brought her to [facility]. She is engaged in the assessment process. EYE CONTACT: Pt makes good eye contact. MOOD: Pt reported she is typically happy and outgoing but was overwhelmed by her feelings on Monday. AFFECT: Pt's affect is normal. APPETITE: Pt reported I love my food. SLEEP(trouble falling/staying asleep: Pt reported other than the last two days she sleeps well. Plan Pt reported that she knows she is in crisis when she impulsively acts. She stated that she typically talks with her when in crisis. She identified her and daughter as her natural supports. She identified her primary doctor as her only professional support. Pt state that she loves her chickens and her dogs. She stated that her , daughter and dogs are her reason to live. Pt agreed to a couple of check in calls over the next 48 hours. This clinician outreached to the Pt's who stated that he had already got rid of all the extra unnecessary medications in the home. He stated all that was left was his prescribed meds and the Pt's and those are even in a safe place. Due to Pt not having any history of suicidal behaviors, her remorsefulness and her willingness to accept check in calls it his this clinician?s belief that she is not at a high risk to act on these thoughts again. It seems that her family is a good support and have also been proactive to prevent this from happening again. Signature Clinician's Name/Title: Manda Julio MS, [facility]
== END 2020-09-14 13:15 | disposition home or self-care (01) | DRG 917 ==
LOC: ER 09-12 08:07 → ICU 09-12 13:29
PROVIDERS: Emergency Medicine; Registered Nurse Emergency; Student in an Organized Health Care Education/Training Program; Admitting Provider Family Medicine; Emergency Provider Physician Assistant; PCP Family Medicine; Visit Provider Family Medicine
DX: T42.8X2A Poisoning by antiparkinsonism drugs and other central muscle-tone depressants, intentional self-harm, initial encounter (principal); J18.9 Pneumonia, unspecified organism; G89.4 Chronic pain syndrome; I10 Essential (primary) hypertension; Z79.891 Long term (current) use of opiate analgesic; M54.9 Dorsalgia, unspecified; F32.9 Major depressive disorder, single episode, unspecified; Z78.1 Physical restraint status; R40.0 Somnolence; R09.02 Hypoxemia; J01.40 Acute pansinusitis, unspecified
CPT/HCPCS: 36415; 36416; 51702; 71275; 74177; 80048; 80053; 80076; 80307; 81025; 82550; 82805; 82962; 84145; 93005; 96361; 96372; 96374; 97162; 99223; 99233; 99239; 99285; J1650; 70450; 71045; 73600; 80329; 81003; 81015; 83735; 84484; 85025; 93010; J1885; J1940; J2060; J2543; J3490; L1902